=== PATIENT | female | born 1985 | race Caucasian/White ===

== ENCOUNTER 2017-08-06 09:32 | Emergency (ER) | payer MEDICAID ==
[~2017-08-06] VITALS: Ht 162.6 cm; Wt 63.5 kg
[2017-08-06] MEDS ORDERED: ACETAMINOPHEN-1 EAC1 ORAL (10:02)
[2017-08-06] MEDS ORDERED: VENTOLIN HFA18 GM INH (10:02)
[2017-08-06] MEDS ORDERED: TAMIFLU75 MG ORAL (10:02)
--- NOTE | 2017-08-06 10:39 | Emergency Room Report ---
History of Present Illness General Chief Complaint: Flu Like Symptoms Source: Patient Present Illness HPI 31YOF with 1 day of body aches, subjective fever/chills, sore throat Did not get flu shot Denies asthma COPD denies sick contacts at home or work Did not take any [id number] medications Allergies: Uncoded Allergies: NUTS (Allergy, Unknown, 08/06/17) Patient History Past Medical History: none Past Surgical History: none Pertinent Family History: none Social History: Denies: smoking, alcohol use, drug use Now: No Immunizations: UTD Reviewed Nursing Documentation: PMH: Agreed, PSxH: Agreed Nursing Documentation-PMH Past Medical History: No Stated History Review of Systems All Other Systems: negative except mentioned in HPI Physical Exam Vital Signs Date Time Temp Pulse Resp B/P (MAP) Pulse Ox O2 Delivery O2 Flow Rate FiO2 08/06/17 09:36 98.8 115 20 124/76 98 Room Air Sp02 EP Interpretation: reviewed, normal General Appearance: normal inspection, well appearing, no apparent distress, alert, GCS 15, non-toxic Head: normocephalic, atraumatic Eyes: bilateral eye PERRL, bilateral eye EOMI ENT: normal ENT inspection, hearing grossly normal, normal pharynx, no angioedema, normal voice, TMs + canals normal, uvula midline, moist mucus membranes Neck: normal inspection, full range of motion, supple, thyroid normal, no meningismus, no bony tend Respiratory: normal inspection, lungs clear, normal breath sounds, no rhonchi, no respiratory distress, no retraction, no accessory muscle use, no wheezing, speaking full sentences Cardiovascular #1: regular rate, rhythm, no edema, no JVD, normal capillary refill Gastrointestinal: normal inspection, normal bowel sounds, non tender, soft, no mass, no peritonitis, non-distended, no guarding, no hernia, no pulsatile mass Genitourinary: no CVA tenderness Musculoskeletal: normal inspection, back normal, normal range of motion, no calf tenderness, pelvis stable, Jean-Pierre's Sign negative Neurologic: normal inspection, alert, oriented x3, responsive, deburrer machine III-XII nml as tested, motor strength/tone normal, cerebellar normal, normal gait, speech normal Psychiatric: normal inspection, judgement/insight normal, mood/affect normal, no suicidal/homicidal ideation, no delusions Skin: normal inspection, normal color, no rash Lymphatic: normal inspection, no adenopathy Medical Decision Making Diagnostic Impression: Primary Impression: Influenza-like symptoms ER Course 31-year-old female with influenza-like symptoms including body aches, subjective fevers and chills and sore throat No acute bacterial infection identified on exam vital signs stable, afebrile, nonseptic appearing we'll treat empirically for flu given one-day duration of symptoms ER course: Patient has remained stable during ED stay. Disposition: Patient is to be discharged to home. Prescriptions given are tamiflu, T#3, Patient is instructed to follow up with their primary care doctor within 5 days. Patient is instructed to follow up with *specialist within 3 days. Strict return precautions discussed with patient such as fever, chills, worsening/severe pain, nausea, vomiting, which may indicate severe illness. Patient verbalizes understanding and agrees with plan. Please note that this Emergency Department Report was dictated using [employer] simulation technology software, occasionally this can lead to erroneous entry secondary to interpretation by the dictation equipment Last Vital Signs Date Time Temp Pulse Resp B/P (MAP) Pulse Ox O2 Delivery O2 Flow Rate FiO2 08/06/17 10:04 Room Air 08/06/17 09:36 98.8 115 20 124/76 98 Status: improved Disposition: HOME, SELF-CARE Condition: Improved Scripts Acetaminophen With Codeine (T#3) (TYLENOL #3 TAB*) Y Tab 1 TAB ORAL Q8H Y for cough, sore throat for 7 Days, #20 TAB Prov: TABITHA ALVARES M.D. 08/06/17 Albuterol Sulfate (VENTOLIN HFA) 18 Gm Hfa.aer.ad 1 PUFF INH EVERY 6 HOURS for For Cough, #18 GM 0 Refills Prov: TABTIHA ALVARES M.D. 08/06/17 Oseltamivir Phosphate (Tamiflu) 75 Mg Capsule 75 MG ORAL TWICE A DAY for 5 Days, #10 CAP Prov: TABITHA ALVARES M.D. 08/06/17 Patient Instructions: Influenza, Adult, [id number] Additional Instructions: - Take Tamiflu twice daily for 5 days - Use albuterol and Tylenol #3 as needed for cough, sore throat - Follow up with your primary care doctor in 2-3 days TABITHA ALVARES M.D. Aug 06, 2017 10:39
[2017-08-06 18:45] VITALS: BP 128/77
== END 2017-08-06 18:40 | disposition home or self-care (01) ==
LOC: EMR 10:08
DX: J11.1 Influenza due to unidentified influenza virus with other respiratory manifestations (principal); Z91.018 Allergy to other foods
CPT/HCPCS: 99284